=== PATIENT | female | born 1965 | race African-American/Black ===

== ENCOUNTER 2021-01-28 14:44 | Emergency (ER) | payer SELFPAY ==
[~2021-01-28] VITALS: Ht 152.4 cm; Wt 63.0 kg
--- NOTE | 2021-01-28 15:27 | PHYS DOC ---
Past Medical History Additional Past Medical Histor: lupus, raynauds, OA, Past Surgical History: Hysterectomy Smoking Status: Current Every Day Smoker Alcohol Use: Occasionally Social History Narrative: smells heavily of marijuana General Adult EDM: Chief Complaint: ABDOMINAL PAIN HPI: HPI: Patient is a 55 year old female who presents with 1 day of intermittent cramping-like pain in her lower abdomen. She states that she has been having this off and on for last 6 months that she goes to her primary care doctor at . She states that they were going to be working her up for possible IBS. She states that she lost her insurance that has not been able to be done. States she is having nausea and vomiting. She states she did have a bowel movement that was normal for her at this morning. She denies fever, diarrhea, constipation, headache, dizziness, chest pain, shortness of air, cough, numbness or tingling, focal weakness, body aches. She rates her pain a 9 out of 10. Review of Systems: Review of Systems: Constitutional: Denies fever or chills. [] Eyes: Denies change in visual acuity. [] HENT: Denies nasal congestion or sore throat. [] Respiratory: Denies cough or shortness of breath. [] Cardiovascular: Denies chest pain or edema. [] GI: +Lower abdominal pain, +nausea, +vomiting, denies bloody stools or diarrhea. [] : Denies dysuria. [] Musculoskeletal: Denies back pain or joint pain. [] Integument: Denies rash. [] Neurologic: Denies headache, focal weakness or sensory changes. [] Endocrine: Denies polyuria or polydipsia. [] Lymphatic: Denies swollen glands. [] Psychiatric: Denies depression or anxiety. [] Heart Score: C/O Chest Pain: No Risk Factors: Risk Factors: DM, Current or recent (<one month) smoker, HTN, HLP, family history of CAD, obesity. Risk Scores: Score 0 - 3: 2.5% MACE over next 6 weeks - Discharge Home Score 4 - 6: 20.3% MACE over next 6 weeks - Admit for Clinical Observation Score 7 - 10: 72.7% MACE over next 6 weeks - Early Invasive Strategies Current Medications: Current Medications Medications (Trade) Dose Ordered Sig/Deena Start Time Stop Time Status Last Admin Dose Admin Fentanyl Citrate (Fentanyl 2ml Vial) 25 mcg 1X ONCE 01/28/21 15:30 01/28/21 15:31 UNV Ondansetron HCl (Zofran) 4 mg 1X ONCE 01/28/21 15:30 01/28/21 15:31 UNV Sodium Chloride 1,000 ml @ 1,000 mls/hr Q1H 01/28/21 15:30 01/28/21 16:29 UNV Allergies: Allergies: Allergies Coded Allergies Type Severity Reaction Last Updated Verified No Known Drug Allergies 01/28/21 No Physical Exam: PE: Constitutional: Well developed, well nourished, no acute distress, non-toxic appearance. [] HENT: Normocephalic, atraumatic, bilateral external ears normal, oropharynx moist, no oral exudates, nose normal. [] Eyes: PERRLA, EOMI, conjunctiva normal, no discharge. [] Neck: Normal range of motion, no tenderness, supple, no stridor. [] Cardiovascular:Heart rate regular rhythm, no murmur [] Lungs & Thorax: Bilateral breath sounds clear to auscultation [] Abdomen: Bowel sounds normal, soft, bilateral lower tenderness, no masses, no pulsatile masses. [] Skin: Warm, dry, no erythema, no rash. [] Back: No tenderness, no CVA tenderness. [] Extremities: No tenderness, no cyanosis, no clubbing, ROM intact, no edema. [] Neurologic: Alert and oriented X 3, normal motor function, normal sensory func tion, no focal deficits noted. [] Psychologic: Affect normal, judgement normal, mood normal. [] Current Patient Data: Vital Signs: Vital Signs Date Time Temp Pulse Resp B/P (MAP) Pulse Ox O2 Delivery O2 Flow Rate FiO2 01/28/21 15:06 98.7 73 24 224/112 98 Room Air 98.7 EKG: EK and read by Dr. Jaime as a sinus rhythm with T depressions in 1, 5, 6, 3, aVF and lead III. Radiology/Procedures: Radiology/Procedures: [] Impression: [facility] [address] [place] [address] IMAGING REPORT Signed PATIENT: SHU STOKESLLE ACCOUNT: [id number] : 1965 LOCATION: ER AGE: 55 SEX: F EXAM STATUS: REG ER ORD. PHYSICIAN: MARIA FERNANDA ABDI APRN REASON: VOMITING PROCEDURE: PORTABLE CHEST 1V XR CHEST 1V CLINICAL INDICATIONS: Reason: VOMITING Comparison: None available. Findings: Old granulomatous disease is evident. No acute lung infiltrate or pleural effusion or pulmonary edema or lung mass or pneumothorax is seen. The heart size, pulmonary vasculature, mediastinum and both atif are unremarkable. IMPRESSION: No acute radiographic abnormality is seen. Electronically signed by: Percy Escalona MD (01/28/2021 4:09 PM) [id number] DICTATED and SIGNED BY: PERCY ESCALONA MD DATE: 01/28/21 [id number] [facility] [address] [place] [address] IMAGING REPORT Signed PATIENT: JANAE STOKES ACCOUNT: [id number] : 1965 LOCATION: ER AGE: 55 SEX: F EXAM STATUS: REG ER ORD. PHYSICIAN: MARIA FERNANDA ABDI APRN REASON: ABD PAIN AND VOMITING PROCEDURE: CT ABD PELV W/ IV CONTRST ONLY Exam: CT of abdomen and pelvis with contrast INDICATION: Abdominal pain and vomiting TECHNIQUE: Sequential axial images through the abdomen and pelvis obtained following the administration of 75 mL of Omni 300 IV contrast. Sagittal and coronal reformatted images were reconstructed from the axial data and reviewed. Exposure: One or more of the following in the visualized dose reduction techniques were utilized for this examination: 1. Automated exposure control 2. Adjustment of the MA and/or KV according to patient size 3. Use of iterative of reconstructive technique Comparisons: None FINDINGS: Heart size is normal. No pericardial. Visualized lung bases are clear. No pleural effusion. Liver, spleen, pancreas, gallbladder and adrenals are unremarkable. No perinephric inflammation or hydronephrosis. No renal or ureteral calculi are identified. Bladder is partially distended and not well evaluated. Uterus is absent. No abnormal adnexal mass. Large amount stool is noted in the sigmoid colon. Appendix is normal. No free intra-abdominal air or fluid. No obstruction. Abdominal aorta has a normal course and caliber. Abdominal vasculature is patent. No enlarged abdominal lymph nodes are identified. No suspicious osseous lesions or acute fractures. IMPRESSION: No acute process identified within the abdomen or pelvis Electronically signed by: Tamia Hadley MD (01/28/2021 5:41 PM) [facility] DICTATED and SIGNED BY: TAMIA HADLEY MD DATE: 01/28/21 [id number] 0 Course & Med Decision Making: Course & Med Decision Making Pertinent Labs and Imaging studies reviewed. (See chart for details) See HPI. Alert and oriented x4. Ambulatory steady gait. Speaks in full clear sentences. Lower abdomen is tender with palpation. Abdomen otherwise soft and nontender. Afebrile. Blood work unremarkable. Chest x-ray shows no acute findings. Urinalysis does not show infection. CT abdomen pelvis shows a large amount of stool. Patient is p.o. challenge successfully. More likely patient is she is constipated. Patient states she is feeling much better. She will follow up with her primary care provider. [] Nurison Disclaimer: Dragon Disclaimer: This electronic medical record was generated, in whole or in part, using a voice recognition dictation system. Departure Departure Impression: Primary Impression: Abdominal pain Qualified Codes: R10.30 - Lower abdominal pain, unspecified Additional Impression: Constipation Qualified Codes: K59.00 - Constipation, unspecified Disposition: HOME / SELF CARE / HOMELESS Condition: STABLE Referrals: ANGELINA ISRAEL MD Patient Instructions: Abdominal Pain (Nonspecific), Constipation, Adult Additional Instructions: Follow-up with primary care provider soon as possible. Or follow-up with GI doctor. Drink plenty of fluids. Take medication as prescribed. Scripts Magnesium Citrate (MAGNESIUM CITRATE) 296 Ml Solution 296 ML PO ONCE, #296 ML Prov: MARIA FERNANDA ABDI KENO WRITER/RUNNER 01/28/21 MARIA FERNANDA ABDI KENO WRITER/RUNNER Jan 28, 2021 15:27
[2021-01-28] MEDS ORDERED: ONDANSETRON PF 4 MG/2 ML VIAL. IVP ONE (15:30)
[2021-01-28] MEDS ORDERED: fentaNYL PF VIAL 100 MCG/2 ML VIAL IVP ONE ×2 (15:30→19:00)
[2021-01-28] MEDS ORDERED: hydrALAZINE 20 MG/ML VIAL. IVP ONE (15:30)
[2021-01-28] MEDS ORDERED: IV NORMAL SALINE 1000ML BAG 1,000 ML IV SCH (15:30)
[2021-01-28 16:04] LABS: BILIRUBIN,URINE NEGATIVE (NEG); CLARITY,URINE CLEAR; COLOR,URINE YELLOW; NITRITE,URINE NEGATIVE (NEG); PROTEIN,URINE NEGATIVE (NEG-TRACE); UROBILINOGEN,URINE 0.2 mg/dL (0.2 mg/dL)
[2021-01-28 16:06] LABS: BASO % 0 % (0-3); EOS # 0.2 x10^3/uL (0.0-0.7); EOS % 1 % (0-3); HEMATOCRIT 38.8 % (36.0-47.0); HEMOGLOBIN 13.2 g/dL (12.0-15.5); LYMPH # 1.6 x10^3/uL (1.0-4.8); LYMPH % 14 % (24-48); MEAN CORPUSCULAR HEMOGLOBIN 32 pg (25-35); MEAN CORPUSCULAR HGB CONC 34 g/dL (31-37); MEAN CORPUSCULAR VOLUME 94 fL (79-100); MONO # 0.9 x10^3/uL (0.0-1.1); MONO % 8 % (0-9); NEUT # 8.8 x10^3/uL (1.8-7.7); NEUT % 76 % (31-73); PLATELET COUNT 314 x10^3/uL (140-400); RED BLOOD COUNT 4.13 x10^6/uL (3.50-5.40); RED CELL DISTRIBUTION WIDTH 14.3 % (11.5-14.5); WHITE BLOOD COUNT 11.5 x10^3/uL (4.0-11.0)
--- NOTE | 2021-01-28 16:12 | RAD ---
XR CHEST 1V CLINICAL INDICATIONS: Reason: VOMITING Comparison: None available. Findings: Old granulomatous disease is evident. No acute lung infiltrate or pleural effusion or pulmo nary edema or lung mass or pneumothorax is seen. The heart size, pulmonary vasculature, mediastinum and both atif are unremarkable. IMPRESSION: No acute radiographic abnormality is seen. Electronically signed by: Percy Escalona MD (01/28/2021 4:09 PM) [id number]
[2021-01-28] MEDS ORDERED: IOHEXOL 300 MG/ML 100ML VIAL. IV ONE (16:15)
[2021-01-28] MEDS ORDERED: CONTRAST GIVEN. MC PRN (16:15)
[2021-01-28 16:27] LABS: BACTERIA,URINE 0 /HPF (0-FEW); RBC,URINE OCC /HPF (0-2); WBC,URINE OCC /HPF (0-4)
[2021-01-28 16:56] LABS: CALCIUM 8.8 mg/dL (8.5-10.1); CREATININE 0.8 mg/dL (0.6-1.0); GFR 89.8; POTASSIUM 3.9 mmol/L (3.5-5.1)
[2021-01-28 17:01] LABS: ALBUMIN 3.5 g/dL (3.4-5.0); ALBUMIN/GLOBULIN RATIO 0.8 (1.0-1.7); TOTAL BILIRUBIN 0.3 mg/dL (0.2-1.0); TOTAL PROTEIN 7.9 g/dL (6.4-8.2)
--- NOTE | 2021-01-28 17:44 | RAD ---
Exam: CT of abdomen and pelvis with contrast INDICATION: Abdominal pain and vomiting TECHNIQUE: Sequential axial images through the abdomen and pelvis obtained following the administrati on of 75 mL of Omni 300 IV contrast. Sagittal and coronal reformatted images were reconstructed from the axial data and reviewed. Exposure: One or more of the following in the visualized dose reduction techniques were utilized for this examination: 1. Automated exposure control 2. Adjustment of the MA and/or KV according to patient size 3. Use of iterative of reconstructive technique Comparisons: None FINDINGS: Heart size is normal. No pericardial. Visualized lung bases are clear. No pleural effusion. Liver, spleen, pancreas, gallbladder and adrenals are unremarkable. No perinephric inflammation or hydronephrosis. No renal or ureteral calculi are identified. Bladder is partially distended and not well evaluated. Uterus is absent. No abnormal adnexal mass. Large amount stool is noted in the sigmoid colon. Appendix is normal. No free intra-abdominal air or fluid. No obstruction. Abdominal aorta has a normal course and caliber. Abdominal vasculature is patent. No enlarged abdominal lymph nodes are identified. No suspicious osseous lesions or acute fractures. IMPRESSION: No acute process identified within the abdomen or pelvis Electronically signed by: Tamia More MD (01/28/2021 5:41 PM) [facility]
[2021-01-28] MEDS ORDERED: MAGN296S68 PO (18:43)
[2021-01-28] MEDS ORDERED: METOCLOPRAMIDE HCL 10 MG/2 ML VIAL. IVP ONE (19:15)
[2021-01-28] MEDS ORDERED: diphenhydrAMINE 50 MG/ML VIAL IVP ONE (19:15)
[2021-01-28 19:27] VITALS: BP 157/76
--- NOTE | 2021-01-29 18:56 | EKG ---
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
--- NOTE | 2021-01-30 10:32 | NUR ---
IP: Attempted to contact pt concerning covid results. no answer, left a voicemail to return the call.
--- NOTE | 2021-01-30 12:17 | NUR ---
IP: Pt returned my call. I informed her of the negative covid test. Pt verbalized understanding.
== END 2021-01-28 20:32 | disposition home or self-care (01) ==
LOC: ER 14:44
DX: K59.00 Constipation, unspecified (principal); Z20.822 Contact with and (suspected) exposure to COVID-19; F17.200 Nicotine dependence, unspecified, uncomplicated; Z90.710 Acquired absence of both cervix and uterus
CPT/HCPCS: 36415; 71045; 74177; 80053; 81001; 83690; 84484; 85025; 87426; 93005; 96361; 96374; 96375; 96376; 99285; J0360; J1200; J2405; J2765; J3010; J7030; Q9967; U0003; U0005

== ENCOUNTER 2021-02-27 05:33 | Inpatient (IN) | payer SELFPAY ==
[~2021-02-27] VITALS: Ht 152.4 cm; Wt 63.6 kg
[~2021-02-27 05:33] MED LIST: MAGN296S68 PO
[2021-02-27] MEDS ORDERED: DEXAMETHASONE SOD PHOS 4 MG/ML VIAL IVP ONE (06:30)
--- NOTE | 2021-02-27 06:47 | PHYS DOC ---
Past Medical History Additional Past Medical Histor: lupus, raynauds, OA, Past Surgical History: Hysterectomy Smoking Status: Current Every Day Smoker Alcohol Use: Occasionally General Adult EDM: Chief Complaint: FLU SYMPTOM HPI: HPI: Patient is a 55 year old 55-year-old female with history of lupus who presents with shortness of breath in the setting of known Covid. States that she has had fever, chills, cough, congestion, shortness of breath, loss of taste/smell for the past week. She has some rib discomfort with frequent coughing. She tested positive 45 days ago. She has not been vaccinated for covid. Review of Systems: Review of Systems: Constitutional: Reports fever and chills. [] Eyes: Denies change in visual acuity. [] HENT: Ports nasal congestion. Denies sore throat. [] Respiratory: Reports cough and shortness of breath.. [] Cardiovascular: Reports chest discomfort with coughing. No edema. [] GI: Denies abdominal pain, nausea, vomiting, bloody stools or diarrhea. [] : Denies dysuria. [] Musculoskeletal: Denies back pain or joint pain. [] Integument: Denies rash. [] Neurologic: Denies headache, focal weakness or sensory changes. [] Endocrine: Denies polyuria or polydipsia. [] Lymphatic: Denies swollen glands. [] Psychiatric: Denies depression or anxiety. [] Heart Score: C/O Chest Pain: No Risk Factors: Risk Factors: DM, Current or recent (<one month) smoker, HTN, HLP, family history of CAD, obesity. Risk Scores: Score 0 - 3: 2.5% MACE over next 6 weeks - Discharge Home Score 4 - 6: 20.3% MACE over next 6 weeks - Admit for Clinical Observation Score 7 - 10: 72.7% MACE over next 6 weeks - Early Invasive Strategies Current Medications: Current Medications Medications (Trade) Dose Ordered Sig/Deena Start Time Stop Time Status Last Admin Dose Admin Dexamethasone Sodium Phosphate (Decadron) 6 mg 1X ONCE 02/27/21 06:30 02/27/21 06:31 DC Allergies: Allergies: Allergies Coded Allergies Type Severity Reaction Last Updated Verified No Known Drug Allergies 01/28/21 No Physical Exam: PE: Constitutional: Well developed, well nourished, no acute distress, non-toxic appearance. [] HENT: Normocephalic, atraumatic, [] Eyes: conjunctiva normal, no discharge. [] Neck: Normal range of motion, no tenderness, supple, no stridor. [] Cardiovascular:Heart rate regular rhythm, no murmur [] Lungs & Thorax: Crackles bilaterally. Normal work of breathing. Satting 88% on room air. [] Abdomen: Bowel sounds normal, soft, no tenderness, no masses, no pulsatile masses. [] Skin: Warm, dry, no erythema, no rash. [] Back: No tenderness, no CVA tenderness. [] Extremities: No tenderness, no cyanosis, no clubbing, ROM intact, no edema. [] Neurologic: Alert and oriented X 3, normal motor function, normal sensory function, no focal deficits noted. [] Psychologic: Affect normal, judgement normal, mood normal. [] Current Patient Data: Vital Signs: Vital Signs Date Time Temp Pulse Resp B/P (MAP) Pulse Ox O2 Delivery O2 Flow Rate FiO2 02/27/21 05:50 99.0 107 23 145/77 (99) 93 Nasal Cannula 2.0 99.0 EKG: EKG: Sinus rhythm. Rate 96. Left axis deviation. Lateral ST depressions and T wave inversions. Anterior Q waves. Inferior ST depression and T wave inversion also [] Radiology/Procedures: Radiology/Procedures: [] Impression: [facility] [address] [place] [address] IMAGING REPORT Signed PATIENT: JANAE STOKES ACCOUNT: [id number] : 1965 LOCATION: ER AGE: 55 SEX: F EXAM STATUS: REG ER ORD. PHYSICIAN: SERA MANNING MD REASON: covid + sob PROCEDURE: CHEST AP ONLY EXAM: CHEST ONE VIEW. HISTORY: Shortness of breath, COVID-19. COMPARISON: 01/28/2021. FINDINGS: A frontal view of the chest is obtained. Basilar predominant interstitial and airspace infiltrates are consistent with atypical pneumonia. There is no pneumothorax or pleural effusion. The heart is not enlarged. Calcified lymph nodes likely reflect old granulomatous disease. IMPRESSION: 1. Bibasilar pneumonia. Electronically signed by: Glen Crawford MD (02/27/2021 7:01 AM) [facility] DICTATED and SIGNED BY: SERA CRAWFORD MD DATE: 02/27/21 [id number] Course & Med Decision Making: Course & Med Decision Making Pertinent Labs and Imaging studies reviewed. (See chart for details) Patient a 55-year-old female with history of lupus who presents with shortness of breath in setting of known Covid. On arrival is afebrile, hemodynamically stable, her SPO2 dropped to 88% while speaking to me on room air. Recovered nicely 2 L/min. Will require admission for hypoxia in the setting of Covid. Labs and chest x-ray ordered. dexamethasone given. [address] depressions and t-wave inversions. TWI are not new as compared to old EKG, however, ST depressions are more prominent. troponin added. CXR c/w atypical pneumonia. No e/o bacterial infection, will hold on abx. 0715 Troponin negative. WIll discuss admission with hospitalist. 0836 Jenniffer Disclaimer: Jenniffer Disclaimer: This electronic medical record was generated, in whole or in part, using a voice recognition dictation system. Departure Departure Impression: Primary Impression: Respiratory failure with hypoxia Additional Impression: COVID-19 Disposition: ADMITTED INPATIENT Admitting Physician: Madi. Michael SKAGGS ([place]) Condition: STABLE Referrals: ERVIN SUAREZ (PCP) SERA MANNING MD Feb 27, 2021 06:47
--- NOTE | 2021-02-27 07:03 | RAD ---
EXAM: CHEST ONE VIEW. HISTORY: Shortness of breath, COVID-19. COMPARISON: 01/28/2021. FINDINGS: A frontal view of the chest is obtained. Basilar predominant interstitial and airspace infiltrates are consistent with atypical pneumonia. The re is no pneumothorax or pleural effusion. The heart is not enlarged. Calcified lymph nodes likely re flect old granulomatous disease. IMPRESSION: 1. Bibasilar pneumonia. Electronically signed by: Glen Crawford MD (02/27/2021 7:01 AM) [facility]
[2021-02-27 08:06] LABS: BASO % 0 % (0-3); EOS % 0 % (0-3); HEMATOCRIT 39.3 % (36.0-47.0); HEMOGLOBIN 13.3 g/dL (12.0-15.5); LYMPH % 14 % (24-48); MEAN CORPUSCULAR HEMOGLOBIN 31 pg (25-35); MEAN CORPUSCULAR HGB CONC 34 g/dL (31-37); MEAN CORPUSCULAR VOLUME 93 fL (79-100); MONO # 0.7 x10^3/uL (0.0-1.1); MONO % 11 % (0-9); NEUT # 5.3 x10^3/uL (1.8-7.7); NEUT % 76 % (31-73); PLATELET COUNT 279 x10^3/uL (140-400); RED BLOOD COUNT 4.24 x10^6/uL (3.50-5.40); RED CELL DISTRIBUTION WIDTH 14.3 % (11.5-14.5); WHITE BLOOD COUNT 7.1 x10^3/uL (4.0-11.0)
[2021-02-27 08:15] LABS: CALCIUM 8.4 mg/dL (8.5-10.1); CREATININE 0.8 mg/dL (0.6-1.0); GFR 89.8; POTASSIUM 3.8 mmol/L (3.5-5.1)
[2021-02-27 08:21] LABS: ALBUMIN 2.8 g/dL (3.4-5.0); ALBUMIN/GLOBULIN RATIO 0.6 (1.0-1.7); TOTAL BILIRUBIN 0.3 mg/dL (0.2-1.0); TOTAL PROTEIN 7.3 g/dL (6.4-8.2)
[2021-02-27] MEDS ORDERED: ELECTROLYTE (NON-ICU) PROTOCOL. MC PRN (08:30)
[2021-02-27] MEDS ORDERED: ONDANSETRON PF 4 MG/2 ML VIAL. IVP PRN (08:30)
[2021-02-27] MEDS ORDERED: CALCIUM CARBONATE 500 MG TAB.CHEW PO PRN (08:30)
[2021-02-27] MEDS ORDERED: ACETAMINOPHEN 325 MG TABLET. PO PRN (08:30)
[2021-02-27] MEDS ORDERED: oxyCODONE IR 5 MG TABLET PO PRN (08:30)
[2021-02-27] MEDS ORDERED: AZITHRMYCN 500MG IVPB FOR OMNI 250 ML IV ONE (08:45)
[2021-02-27] MEDS: SENNOSIDES/DOCUSATE 8.6/50MG TABLET. PO SCH ×2 (09:00→20:31)
[2021-02-27] MEDS: ENOXAPARIN 40 MG/0.4 ML SYRINGE. SQ SCH (10:28)
[2021-02-27] MEDS: DEXAMETHASONE SOD PHOS 4 MG/ML VIAL IVP SCH (10:29)
[2021-02-27] MEDS: AZITHROMYCIN 500 MG in IV NORMAL SALINE 250ML 250 ML IV SCH (10:31)
[2021-02-27] MEDS ORDERED: REMDESIVIR LOAD in IV NORMAL SALINE 250ML TV IV ONE (12:00)
--- NOTE | 2021-02-27 12:17 | PDOC1 ---
History and Physical Date of Service: DOS: DATE: 02/27/21 TIME: 12:06 Chief Complaint: Problems: (1) COVID-19 (2) Respiratory failure with hypoxia History of Present Illness: HPI: Patient is a 55-year-old -[place] female who presented to the emergency room this morning with shortness of breath. She was found to have saturations in the 70s on room air was placed on nasal cannula 3 L and O2 sats improved. Patient says she is a known Covid positive from 5 days ago. Multiple Covid contacts at home. She was not vaccinated. Said her symptoms initially were not quite this bad but over the past few days her coughing in particular has gotten much worse. She been coughing so much she is now having rib pain with coughing. She does report subjective fever, decreased p.o. intake, loss of taste and smell, cough with pain, and congestion. Did not try any particular [id number] meds at home. Past Medical/Surgical History: PMH/PSH: Lupus, Raynauds, osteoarthritis Allergies: Allergies: Coded Allergies: No Known Drug Allergies (Unverified , 01/28/21) Family History: Family History: Hypertension Social History: Social History: Current daily smoker. Social alcohol use. Denies drug use Current Medications: Current Medications Current Medications Dexamethasone Sodium Phosphate (Decadron) 6 mg 1X ONCE IVP Last administered on 02/27/21at 07:48; Start 02/27/21 at 06:30; Stop 02/27/21 at 06:31; Status DC Ondansetron HCl (Zofran) 4 mg PRN Q6HRS PRN IVP NAUSEA/VOMITING; Start 02/27/21 at 08:30 Calcium Carbonate/ Glycine (Tums) 500 mg PRN Q3HRS PRN PO UPSET STOMACH Last administered on 02/27/21at 10:28; Start 02/27/21 at 08:30 Zolpidem Tartrate (Ambien) 5 mg PRN QHS PRN PO INSOMNIA, MAY REPEAT IN 1HR; Start 02/27/21 at 08:30 Info (Non-Icu Electrolyte Protocol) 1 ea PRN DAILY PRN MC SEE COMMENTS; Start 02/27/21 at 08:30 Oxycodone HCl (Roxicodone) 5 mg PRN Q3HRS PRN PO BREAKTHROUGH PAIN; Start 02/27/21 at 08:30 Oxycodone/ Acetaminophen (Percocet 5/325) 1 tab PRN Q4HRS PRN PO MILD PAIN, 1ST CHOICE; Start 02/27/21 at 08:30 Oxycodone/ Acetaminophen (Percocet 5/325) 2 tab PRN Q4HRS PRN PO MODERATE PAIN, SEVERE PAIN; Start 02/27/21 at 08:30 Acetaminophen (Tylenol) 650 mg PRN Q6HRS PRN PO Headaches, Temp > 101.5F; St art 02/27/21 at 08:30 Senna/Docusate Sodium (Senna Plus) 1 tab BID PO ; Start 02/27/21 at 09:00 Enoxaparin Sodium (Lovenox 40mg Syringe) 40 mg Q24H SQ Last administered on 02/27/21at 10:28; Start 02/27/21 at 09:00 Ampicillin Sodium/ Sulbactam Sodium 3 gm/Sodium Chloride 100 ml @ 200 mls/hr Q6HRS IV ; Start 02/27/21 at 12:00 Azithromycin 500 mg/Sodium Chloride 250 ml @ 250 mls/hr Q24H IV Last administered on 02/27/21at 10:31; Start 02/27/21 at 11:00; Stop 03/02/21 at 10:59 Dexamethasone Sodium Phosphate (Decadron) 6 mg DAILY IVP Last administered on 02/27/21at 10:29; Start 02/28/21 at 09:00 Azithromycin 250 ml @ 250 mls/hr 1X ONCE IV ; Start 02/27/21 at 08:45; Stop 02/27/21 at 09:44; Status Cancel Albuterol/ Ipratropium (Combivent Respimat 20-100 Mcg) 1 puff RTQID INH ; Start 02/27/21 at 12:00 Remdesivir 200 mg/ Sodium Chloride 210 ml @ 210 mls/hr 1X ONCE IV ; Start 02/27/21 at 12:00; Stop 02/27/21 at 12:59 Remdesivir 100 mg/ Sodium Chloride 230 ml @ 460 mls/hr Q24H IV ; Start 02/28/21 at 12:00; Stop 03/03/21 at 12:29 Active Scripts Active Magnesium Citrate 296 Ml Solution 296 Ml PO ONCE ROS: Review of Systems Review of System Negative unless noted in HPI Physical Exam: Vital Signs: Vital Signs Date Time Temp Pulse Resp B/P (MAP) Pulse Ox O2 Delivery O2 Flow Rate FiO2 02/27/21 10:18 94 16 140/79 (99) 96 Nasal Cannula 2.0 02/27/21 05:50 99.0 99.0 Physcial Exam: GEN: Patient in notable distress HEENT: Normal cephalic, atraumatic, external auditory canals are patent EYES: Extraocular muscles are intact, MUSCULOSKELETAL: Well developed , well nourished, good range of motion ENDOCRINE: No thyromegaly was palpated LYMPHATICS: No cervical chain or axillary nodes were noted HEMATOPOIETIC: No bruising NECK: Supple, no JVD, no thyromegaly was noted LUNGS: Coarse breath sounds with coughing with any deep breath HEART: RRR, S1, S2 present. Peripheral pulses intact, no obvious murmurs noted ABDOMEN: Soft, nontender. Positive bowel sounds, no organomegaly, normal bowel sounds EXTREMITIES: Without clubbing, cyanosis, or edema. Pedal pulses intact. Negative Homans sign NEUROLOGIC: Normal speech and tone. A&O x 3, moves all extremities, no obvious focal deficits PSYCHIATRIC: Normal affect, normal mood. Stable SKIN: No ulcerations or rashes, good skin turgor, no jaundice VASCULAR: Good capillary refill, neurovascular bundle appears to be intact Labs: Labs: Laboratory Tests Test 02/27/21 07:43 White Blood Count 7.1 x10^3/uL (4.0-11.0) Red Blood Count 4.24 x10^6/uL (3.50-5.40) Hemoglobin 13.3 g/dL (12.0-15.5) Hematocrit 39.3 % (36.0-47.0) Mean Corpuscular Volume 93 fL (79-100) Mean Corpuscular Hemoglobin 31 pg (25-35) Mean Corpuscular Hemoglobin Concent 34 g/dL (31-37) Red Cell Distribution Width 14.3 % (11.5-14.5) Platelet Count 279 x10^3/uL (140-400) Neutrophils (%) (Auto) 76 % (31-73) Lymphocytes (%) (Auto) 14 % (24-48) Monocytes (%) (Auto) 11 % (0-9) Eosinophils (%) (Auto) 0 % (0-3) Basophils (%) (Auto) 0 % (0-3) Neutrophils # (Auto) 5.3 x10^3/uL (1.8-7.7) Lymphocytes # (Auto) 1.0 x10^3/uL (1.0-4.8) Monocytes # (Auto) 0.7 x10^3/uL (0.0-1.1) Eosinophils # (Auto) 0.0 x10^3/uL (0.0-0.7) Basophils # (Auto) 0.0 x10^3/uL (0.0-0.2) Sodium Level 138 mmol/L (136-145) Potassium Level 3.8 mmol/L (3.5-5.1) Chloride Level 97 mmol/L (98-107) Carbon Dioxide Level 29 mmol/L (21-32) Anion Gap 12 (6-14) Blood Urea Nitrogen 17 mg/dL (7-20) Creatinine 0.8 mg/dL (0.6-1.0) Estimated GFR (Cockcroft-Gault) 89.8 BUN/Creatinine Ratio 21 (6-20) Glucose Level 101 mg/dL (70-99) Calcium Level 8.4 mg/dL (8.5-10.1) Total Bilirubin 0.3 mg/dL (0.2-1.0) Aspartate Amino Transf (AST/SGOT) 45 U/L (15-37) Alanine Aminotransferase (ALT/SGPT) 23 U/L (14-59) Alkaline Phosphatase 62 U/L (46-116) Troponin I Quantitative < 0.017 ng/mL (0.000-0.055) Total Protein 7.3 g/dL (6.4-8.2) Albumin 2.8 g/dL (3.4-5.0) Albumin/Globulin Ratio 0.6 (1.0-1.7) Laboratory Tests Test 02/27/21 07:43 White Blood Count 7.1 x10^3/uL (4.0-11.0) Red Blood Count 4.24 x10^6/uL (3.50-5.40) Hemoglobin 13.3 g/dL (12.0-15.5) Hematocrit 39.3 % (36.0-47.0) Mean Corpuscular Volume 93 fL (79-100) Mean Corpuscular Hemoglobin 31 pg (25-35) Mean Corpuscular Hemoglobin Concent 34 g/dL (31-37) Red Cell Distribution Width 14.3 % (11.5-14.5) Platelet Count 279 x10^3/uL (140-400) Neutrophils (%) (Auto) 76 % (31-73) Lymphocytes (%) (Auto) 14 % (24-48) Monocytes (%) (Auto) 11 % (0-9) Eosinophils (%) (Auto) 0 % (0-3) Basophils (%) (Auto) 0 % (0-3) Neutrophils # (Auto) 5.3 x10^3/uL (1.8-7.7) Lymphocytes # (Auto) 1.0 x10^3/uL (1.0-4.8) Monocytes # (Auto) 0.7 x10^3/uL (0.0-1.1) Eosinophils # (Auto) 0.0 x10^3/uL (0.0-0.7) Basophils # (Auto) 0.0 x10^3/uL (0.0-0.2) Sodium Level 138 mmol/L (136-145) Potassium Level 3.8 mmol/L (3.5-5.1) Chloride Level 97 mmol/L (98-107) Carbon Dioxide Level 29 mmol/L (21-32) Anion Gap 12 (6-14) Blood Urea Nitrogen 17 mg/dL (7-20) Creatinine 0.8 mg/dL (0.6-1.0) Estimated GFR (Cockcroft-Gault) 89.8 BUN/Creatinine Ratio 21 (6-20) Glucose Level 101 mg/dL (70-99) Calcium Level 8.4 mg/dL (8.5-10.1) Total Bilirubin 0.3 mg/dL (0.2-1.0) Aspartate Amino Transf (AST/SGOT) 45 U/L (15-37) Alanine Aminotransferase (ALT/SGPT) 23 U/L (14-59) Alkaline Phosphatase 62 U/L (46-116) Troponin I Quantitative < 0.017 ng/mL (0.000-0.055) Total Protein 7.3 g/dL (6.4-8.2) Albumin 2.8 g/dL (3.4-5.0) Albumin/Globulin Ratio 0.6 (1.0-1.7) Assessment/Plan Assessment/Plan Acute hypoxic respiratory failure secondary to COVID-19 pneumonia, atypical pneumonia, tobacco abuse, history of lupus -Presented to the emergency room with worsening respiratory status -Covid positive at outside facility 5 days ago, has been clinically worsening for the last week and a half -Required 2 L nasal cannula in our emergency room here -Received a dose of dexamethasone in the ER. We will continue 6 mg Decadron daily -With oxygen requirement starting remdesivir. Guaifenesin with codeine, Tessalon Perles, Combivent inhaler -Due to appearance of atypical pneumonia on x-ray will treat with Unasyn and azithromycin for broad coverage -Smoking cessation provided -DVT prophylaxis -Home meds resumed as indicated -Regular diet Justifications for Admission Other Justification ROBERTA BOBBY MD Feb 27, 2021 12:17
[2021-02-27] MEDS: IPRATROPIUM/ALBUTEROL 20/100mcg/INH INHALER. INH SCH ×3 (13:18→20:31)
[2021-02-27] MEDS: oxyCODONE/APAP 5/325 1 TAB TABLET PO PRN ×2 (13:19→17:39)
[2021-02-27] MEDS: guaiFENesin/CODEINE 100mg/10mg 5 ML LIQUID PO PRN ×2 (13:19→20:31)
[2021-02-27] MEDS: AMPICILLIN/SULBACTAM 3 GM in IV NORMAL SALINE 100ML 100 ML IV SCH ×3 (13:24→23:35)
[2021-02-27 15:00] VITALS: BP 132/76
[2021-02-27] MEDS: BENZONATATE 100 MG CAPSULE. PO SCH ×2 (16:15→20:31)
[2021-02-27 19:00] VITALS: BP 150/88
[2021-02-27] MEDS: ZOLPIDEM 5 MG TABLET. PO PRN (20:31)
[2021-02-27 23:00] VITALS: BP 148/77
[2021-02-28 03:39] VITALS: BP 140/78
[2021-02-28] MEDS: AMPICILLIN/SULBACTAM 3 GM in IV NORMAL SALINE 100ML 100 ML IV SCH ×4 (05:30→23:29)
[2021-02-28 07:00] VITALS: BP 134/72
[2021-02-28] MEDS: BENZONATATE 100 MG CAPSULE. PO SCH ×3 (08:45→22:12)
[2021-02-28] MEDS: ENOXAPARIN 40 MG/0.4 ML SYRINGE. SQ SCH (08:45)
[2021-02-28] MEDS: IPRATROPIUM/ALBUTEROL 20/100mcg/INH INHALER. INH SCH ×4 (08:45→22:14)
[2021-02-28] MEDS: guaiFENesin/CODEINE 100mg/10mg 5 ML LIQUID PO PRN ×2 (08:45→15:59)
[2021-02-28] MEDS: SENNOSIDES/DOCUSATE 8.6/50MG TABLET. PO SCH ×2 (09:00→21:00)
--- NOTE | 2021-02-28 10:49 | NUR ---
SW following. Discussed with RN, pt from home alone, family lives in same apartment complex, 2L (does not use oxygen at home), regular diet. COVID-19 positive. SW notified RN that oxygen will cost $120 a month if pt needs at discharge. Med Assist following for self pay status. SW will continue to follow.
[2021-02-28 11:00] VITALS: BP 128/70
[2021-02-28] MEDS: AZITHROMYCIN 500 MG in IV NORMAL SALINE 250ML 250 ML IV SCH (11:01)
[2021-02-28] MEDS: oxyCODONE/APAP 5/325 1 TAB TABLET PO PRN ×3 (11:02→16:06)
--- NOTE | 2021-02-28 14:01 | PDOC ---
[facility] PROGRESS NOTE Date of Service DOS: DATE: 02/28/21 TIME: 14:00 Chief Complaint Chief Complaint COVID-19 respiratory failure Lupus Osteoarthritis History of Present Illness History of Present Illness 02/28/2021 Patient seen and examined Discussed with Chart reviewed Vitals/I&O Vitals/I&O: Vital Signs Date Time Temp Pulse Resp B/P (MAP) Pulse Ox O2 Delivery O2 Flow Rate FiO2 02/28/21 11:32 18 Nasal Cannula 2.0 02/28/21 11:00 98.1 74 128/70 (89) 95 98.1 I & O 02/27/21 02/27/21 02/28/21 14:59 22:59 06:59 Intake Total 320 ml 560 ml 370 ml Balance 320 ml 560 ml 370 ml Physical Exam General: mild distress Heart: Other (Tachycardic) Lungs: Crackles Abdomen: No tenderness Extremities: No clubbing Skin: No rashes Review of Systems Review of Systems: Complains of weakness complains of shortness of Assessment and Plan Assessmemt and Plan Problems Medical Problems: (1) COVID-19 Status: Acute (2) Respiratory failure with hypoxia Status: A COVID-19 respiratory failure Lupus History of osteoarthritis Plan Covid protocol She is currently on remdesivir Continue antibiotics vitamins and minerals beta agonist oxygen codeine cough syrup aspirin DVT prophylaxis Home meds Full code Trend labs Prognosis guarded Comment Review of Relevant I have reviewed the following items sabas (where applicable) has been applied. Medications: Current Medications Medications (Trade) Dose Ordered Sig/Deena Route PRN Reason Start Time Stop Time Status Last Admin Dose Admin Dexamethasone Sodium Phosphate (Decadron) 6 mg DAILY IVP 02/28/21 09:00 02/27/21 10:29 Justifications for Admission Other Justification JAY LAO III DO Feb 28, 2021 14:01
[2021-02-28] MEDS: REMDESIVIR 100mg in NORMAL SALINE 250ML X 4 DAYS IV SCH (14:11)
[2021-02-28] MEDS: LACTOBACILLUS RHAMNOSUS GG 1 CAPSULE. PO SCH ×2 (14:11→22:12)
[2021-02-28 15:12] VITALS: BP 145/80
[2021-02-28 19:00] VITALS: BP 155/82
[2021-02-28 23:00] VITALS: BP 165/87
[2021-03-01 03:00] VITALS: BP 153/80
[2021-03-01] MEDS: AMPICILLIN/SULBACTAM 3 GM in IV NORMAL SALINE 100ML 100 ML IV SCH ×4 (06:04→23:16)
[2021-03-01] MEDS: oxyCODONE/APAP 5/325 1 TAB TABLET PO PRN ×2 (06:09→21:44)
[2021-03-01 07:00] VITALS: BP 159/77
[2021-03-01] MEDS: IPRATROPIUM/ALBUTEROL 20/100mcg/INH INHALER. INH SCH ×4 (10:32→21:42)
[2021-03-01] MEDS: SENNOSIDES/DOCUSATE 8.6/50MG TABLET. PO SCH ×2 (10:33→21:44)
[2021-03-01] MEDS: BENZONATATE 100 MG CAPSULE. PO SCH ×3 (10:33→21:44)
[2021-03-01] MEDS: ENOXAPARIN 40 MG/0.4 ML SYRINGE. SQ SCH (10:33)
[2021-03-01] MEDS: LACTOBACILLUS RHAMNOSUS GG 1 CAPSULE. PO SCH ×2 (10:33→21:43)
[2021-03-01] MEDS: DEXAMETHASONE SOD PHOS 4 MG/ML VIAL IVP SCH (10:33)
[2021-03-01] MEDS: AZITHROMYCIN 500 MG in IV NORMAL SALINE 250ML 250 ML IV SCH (10:35)
[2021-03-01 11:00] VITALS: BP 142/76
[2021-03-01 15:00] VITALS: BP 167/89
[2021-03-01] MEDS: REMDESIVIR 100mg in NORMAL SALINE 250ML X 4 DAYS IV SCH (15:08)
--- NOTE | 2021-03-01 15:24 | PDOC ---
[facility] [facility] PROGRESS NOTE Date of Service DOS: DATE: 03/01/21 TIME: 15:24 Chief Complaint Chief Complaint COVID-19 respiratory failure Lupus Osteoarthritis History of Present Illness History of Present Illness 02/28/2021 Patient seen and examined Discussed with Chart reviewed 03/01/2021 No acute events overnight. Patient seen and examined bedside. Saturating well without any dyspnea on 92% on 2 L nasal cannula. Still on Remdesivir. Patient's chart, labs, images were reviewed and discussed with RN Vitals/I&O Vitals/I&O: Vital Signs Date Time Temp Pulse Resp B/P (MAP) Pulse Ox O2 Delivery O2 Flow Rate FiO2 03/01/21 11:00 97.8 61 16 142/76 (98) 97 Nasal Cannula 2.0 97.8 I & O 02/28/21 02/28/21 03/01/21 15:00 23:00 07:00 Intake Total 400 ml 500 ml 200 ml Balance 400 ml 500 ml 200 ml Physical Exam General: Alert, Oriented X3, Cooperative, mild distress Heart: Regular rate, Other (Tachycardic) Lungs: Crackles Abdomen: No tenderness Extremities: No clubbing Skin: No rashes Assessment and Plan Assessmemt and Plan Problems Medical Problems: (1) COVID-19 Status: Acute (2) Respiratory failure with hypoxia Status: Acute Comment Review of Relevant I have reviewed the following items sabas (where applicable) has been applied. Justifications for Admission Other Justification FLOWER ADAMSON MD Mar 01, 2021 15:24
[2021-03-01 19:00] VITALS: BP 161/86
[2021-03-01] MEDS: ZOLPIDEM 5 MG TABLET. PO PRN (21:44)
[2021-03-01 23:00] VITALS: BP 161/85
[2021-03-02 03:00] VITALS: BP 158/72
[2021-03-02] MEDS: AMPICILLIN/SULBACTAM 3 GM in IV NORMAL SALINE 100ML 100 ML IV SCH (04:53)
[2021-03-02 07:00] VITALS: BP 156/88
[2021-03-02] MEDS: ENOXAPARIN 40 MG/0.4 ML SYRINGE. SQ SCH (09:30)
[2021-03-02] MEDS: IPRATROPIUM/ALBUTEROL 20/100mcg/INH INHALER. INH SCH ×4 (09:30→22:18)
[2021-03-02] MEDS: SENNOSIDES/DOCUSATE 8.6/50MG TABLET. PO SCH ×2 (09:30→22:19)
[2021-03-02] MEDS: oxyCODONE/APAP 5/325 1 TAB TABLET PO PRN ×2 (09:31→15:00)
[2021-03-02] MEDS: BENZONATATE 100 MG CAPSULE. PO SCH ×3 (09:31→22:19)
[2021-03-02] MEDS: guaiFENesin/CODEINE 100mg/10mg 5 ML LIQUID PO PRN ×4 (09:31→23:40)
[2021-03-02] MEDS: LACTOBACILLUS RHAMNOSUS GG 1 CAPSULE. PO SCH ×2 (09:31→22:19)
[2021-03-02] MEDS: DEXAMETHASONE SOD PHOS 4 MG/ML VIAL IVP SCH (09:32)
[2021-03-02 11:00] VITALS: BP 168/93
--- NOTE | 2021-03-02 11:45 | NUR ---
SW following. Discussed with RN, pt not ready to discharge yet. RN attempting to titrate pt off oxygen. SW will continue to follow.
--- NOTE | 2021-03-02 12:39 | PDOC ---
[facility] [facility] PROGRESS NOTE Date of Service DOS: DATE: 03/02/21 TIME: 12:37 Chief Complaint Chief Complaint COVID-19 respiratory failure Lupus Osteoarthritis History of Present Illness History of Present Illness 03/02/2021 Patient seen and examined Discussed with RN Chart reviewed We have lost IV access but the patient is getting better clinically I am going to go and change her to p.o. medications 02/28/2021 Patient seen and examined Discussed with Chart reviewed 03/01/2021 No acute events overnight. Patient seen and examined bedside. Saturating well without any dyspnea on 92% on 2 L nasal cannula. Still on Remdesivir. Patient's chart, labs, images were reviewed and discussed with RN Vitals/I&O Vitals/I&O: Vital Signs Date Time Temp Pulse Resp B/P (MAP) Pulse Ox O2 Delivery O2 Flow Rate FiO2 03/02/21 11:00 98.1 76 17 168/93 (118) 95 Nasal Cannula 1.0 98.1 I & O 03/01/21 03/01/21 03/02/21 15:00 23:00 07:00 Intake Total 240 ml 400 ml 600 ml Balance 240 ml 400 ml 600 ml Physical Exam General: Alert, Oriented X3, Cooperative, mild distress Heart: Regular rate, Other (Tachycardic) Lungs: Crackles Abdomen: No tenderness Extremities: No clubbing Skin: No rashes Assessment and Plan Assessmemt and Plan Problems Medical Problems: (1) COVID-19 Status: Acute (2) Respiratory failure with hypoxia Status: Acute COVID-19 respiratory failure Lupus History of osteoarthritis Plan Changing steroids to p.o. Change in antibiotics to p.o. Stopping the remdesivir as she already got 4 doses Hope to discharge in a.m. For now continue the following Home meds Full code Trend labs Probable discharge in a.m. if stable Comment Review of Relevant I have reviewed the following items sabas (where applicable) has been applied. Justifications for Admission Other Justification JAY LAO III DO Mar 02, 2021 12:39
[2021-03-02 15:00] VITALS: BP 134/95
[2021-03-02 19:00] VITALS: BP 174/94
[2021-03-02] MEDS: AMOXICILLIN/K CLAV 875/125MG TABLET. PO SCH (22:19)
[2021-03-02] MEDS: ZOLPIDEM 5 MG TABLET. PO PRN (22:37)
[2021-03-02 23:26] VITALS: BP 158/92
[2021-03-03 03:08] VITALS: BP 153/81
[2021-03-03 07:00] VITALS: BP 128/76
[2021-03-03] MEDS: ENOXAPARIN 40 MG/0.4 ML SYRINGE. SQ SCH (08:00)
[2021-03-03] MEDS: IPRATROPIUM/ALBUTEROL 20/100mcg/INH INHALER. INH SCH ×2 (08:34→11:42)
[2021-03-03] MEDS: SENNOSIDES/DOCUSATE 8.6/50MG TABLET. PO SCH (08:34)
[2021-03-03] MEDS: AMOXICILLIN/K CLAV 875/125MG TABLET. PO SCH (08:34)
[2021-03-03] MEDS: BENZONATATE 100 MG CAPSULE. PO SCH ×2 (08:34→13:32)
[2021-03-03] MEDS: LACTOBACILLUS RHAMNOSUS GG 1 CAPSULE. PO SCH (08:35)
[2021-03-03] MEDS: oxyCODONE/APAP 5/325 1 TAB TABLET PO PRN ×2 (08:48→13:33)
[2021-03-03] MEDS: guaiFENesin/CODEINE 100mg/10mg 5 ML LIQUID PO PRN (08:48)
[2021-03-03] MEDS ORDERED: methylPREDNISolone 4 MG TABLET. PO SCH ×2 (09:00→12:30)
[2021-03-03] MEDS ORDERED: AZITHROMYCIN 250 MG TABLET. PO SCH (09:00)
[2021-03-03 11:00] VITALS: BP 127/71
[2021-03-03] MEDS ORDERED: BENZ-8 PO (12:47)
--- NOTE | 2021-03-03 13:04 | NUR ---
SW following. Discussed with RN, COVID-19 positive. Discharge order for home with self care. Med Assist following for self pay status.
--- NOTE | 2021-03-03 13:18 | DS ---
DATE OF DISCHARGE: 03/03/2021 ADMISSION DIAGNOSIS: COVID-19 respiratory failure. DISCHARGE DIAGNOSES: Resolving COVID-19 respiratory failure, history of lupus, Raynaud's and osteoarthritis. HOSPITAL COURSE: The patient is a pleasant, middle-aged female who presented with COVID-19 respiratory failure. We gave her COVID protocol, including remdesivir, steroids, breathing treatments, oxygen, antibiotics and over the past 5 days, she has returned to her baseline. Today, I saw and examined her. She is doing well. We planned to discharge home on a steroid taper and a Z-EILEEN. DISPOSITION: Home. ACTIVITY: As tolerated. DIET: Low sodium. DISCHARGE MEDICATIONS: Please see the MRAD. TOTAL TIME: [address]: Varun TID: [id number]
--- NOTE | 2021-03-03 13:23 | PDOC ---
[facility] [facility] PROGRESS NOTE Date of Service DOS: DATE: 03/03/21 TIME: 13:23 Chief Complaint Chief Complaint COVID-19 respiratory failure Lupus Osteoarthritis History of Present Illness History of Present Illness 03/03/2021 Patient seen and examined Chart reviewed Discussed with RN Patient is on room air with oxygen saturation at 91%. Patient is resting with NAD She is currently on p.o. medications Patient reported having a rough night last night, but is wanting to go home today. 03/02/2021 Patient seen and examined Discussed with RN Chart reviewed We have lost IV access but the patient is getting better clinically I am going to go and change her to p.o. medications 02/28/2021 Patient seen and examined Discussed with Chart reviewed 03/01/2021 No acute events overnight. Patient seen and examined bedside. Saturating well without any dyspnea on 92% on 2 L nasal cannula. Still on Remdesivir. Patient' s chart, labs, images were reviewed and discussed with RN Vitals/I&O Vitals/I&O: Vital Signs Date Time Temp Pulse Resp B/P (MAP) Pulse Ox O2 Delivery O2 Flow Rate FiO2 03/03/21 11:00 98.6 85 19 127/71 (89) 92 Room Air 98.6 03/03/21 11:00 1.0 I & O 03/02/21 03/02/21 03/03/21 15:00 23:00 07:00 Intake Total 540 ml Balance 540 ml Physical Exam General: Alert, Oriented X3, Cooperative, mild distress Heart: Regular rate, Other (Tachycardic) Lungs: Crackles Abdomen: No tenderness Extremities: No clubbing Skin: No rashes Assessment and Plan Assessmemt and Plan Problems Medical Problems: (1) COVID-19 Status: Acute (2) Respiratory failure with hypoxia Status: Acute COVID-19 respiratory failure Lupus Osteoarthritis Plan: Discontinued Redemsivir as she already got 4 doses Covid Protocol (solumedrol, multi-vitamin, antibiotics, albuterol, O2, codeine cough syrup, aspirin) Probable discharge home with Z-greta and Medrol dose pack. DVT prophylaxis Home meds Encourage PO intake Full code Comment Review of Relevant I have reviewed the following items sabas (where applicable) has been applied. Medications: Current Medications Medications (Trade) Dose Ordered Sig/Deena Route PRN Reason Start Time Stop Time Status Last Admin Dose Admin Amoxicillin/ Clavulanate Potassium (Augmentin 875/ 125mg) 1 tab BID PO 03/02/21 21:00 03/03/21 08:34 Azithromycin (Zithromax) 250 mg DAILY PO 03/03/21 09:00 03/06/21 09:01 03/03/21 08:34 Methylprednisolone (Medrol) 8 mg BID PO 03/03/21 09:00 03/03/21 21:01 03/03/21 08:35 Methylprednisolone (Medrol) 4 mg BIDPCLD PO 03/03/21 12:30 03/03/21 17:31 03/03/21 11:42 Justifications for Admission Other Justification JAY LAO III DO Mar 03, 2021 13:23
--- NOTE | 2021-03-03 16:30 | NUR ---
Pt discharged to home with self care. Discharge instructions reviewed. She verbalized understanding.
[2021-03-04] MEDS ORDERED: methylPREDNISolone 4 MG TABLET. PO SCH ×2 (08:30→21:00)
[2021-03-05] MEDS ORDERED: methylPREDNISolone 4 MG TABLET. PO SCH (09:00)
[2021-03-06] MEDS ORDERED: methylPREDNISolone 4 MG TABLET. PO SCH (09:00)
[2021-03-07] MEDS ORDERED: methylPREDNISolone 4 MG TABLET. PO SCH (09:00)
[2021-03-08] MEDS ORDERED: methylPREDNISolone 4 MG TABLET. PO SCH (09:00)
== END 2021-03-03 16:30 | disposition home or self-care (01) | DRG 177 ==
LOC: ER 05:33 → 5 SOUTH 08:24
PROVIDERS: ADMIT Student in an Organized Health Care Education/Training Program; ATTEND Student in an Organized Health Care Education/Training Program
PROC: XW033E5 Introduction of Remdesivir Anti-infective into Peripheral Vein, Percutaneous Approach, New Technology Group 5 (ICD-10-PCS; principal; 2021-02-27)
DX: U07.1 COVID-19 (principal); J12.82 Pneumonia due to coronavirus disease 2019; J96.01 Acute respiratory failure with hypoxia; F17.200 Nicotine dependence, unspecified, uncomplicated; I73.00 Raynaud's syndrome without gangrene; M19.90 Unspecified osteoarthritis, unspecified site; Z82.49 Family history of ischemic heart disease and other diseases of the circulatory system; Z90.710 Acquired absence of both cervix and uterus; Z71.6 Tobacco abuse counseling; L93.0 Discoid lupus erythematosus
CPT/HCPCS: 36415; 71045; 80053; 84484; 85025; 87040; 93005; 96365; 96372; 96375; 96376; J0295; J0456; J1100; J1650; J7050; J7509; 99285-25; G0378; J7030